=== PATIENT | male | born 1970 | race Caucasian/White ===

== ENCOUNTER → 2017-11-30 | Emergency (ER) | payer OTHER ==
[~2017-11-30] VITALS: Ht 180.3 cm; Wt 97.5 kg
[~2017-11-30] MED LIST: GENTAK5 ML OP; NIFEDIPINE ER30 M1 PO
== END | disposition home or self-care (01) ==
LOC: ER 23:40
DX: H10.32 Unspecified acute conjunctivitis, left eye (principal); I10 Essential (primary) hypertension

== ENCOUNTER → 2018-02-04 | Emergency (ER) | payer OTHER | END | disposition left against medical advice (07) | LOC: ER 20:18 | DX: Z53.20 Procedure and treatment not carried out because of patient's decision for unspecified reasons (principal) ==